=== PATIENT | female | born 1950 | race Caucasian/White ===

== ENCOUNTER 2017-12-19 10:00 | Outpatient (RCR) | payer MEDICARE, SELFPAY ==
--- NOTE | 2017-10-16 08:50 | HP.PTEVAL ---
Patient's Visit Information PEDRO CHURCHILL is a 67 year old F referred to Physical Therapy by Rachel Rodriguez, DO [place] with a diagnosis of Lateral Meniscus Tear. Date of Evaluation: 10/16/17 Physical Therapist: Ayesha Patel - Visit Plan Frequency: 2x /Week Duration: 3 Weeks Plan: Aquatic Therapy- caution of back pain- - Subjective Subjective: Was in PT since July at [facility] for her back- on before she told the PT that the exercises were making her knee feel unstable. Was told to stop doing the exercise- Sat afternoon stepped up on the bleacher and her knee just went out. Tita Reis went to the ER- x-ray was negative but wanted her to see Dr. Rodriguez. Asked for an MRI who denied and encouraged her to see Dr. Noriega for her back. Her knee is stiff and has limited mobility. Pain is located along the posterior aspect of the knee- and on the lateral side of the knee. Has radiating pain but thinks its from her back (tingling). Describes knee pain as dull, achy and stiff. Uses a cane because she isn't comfortable and concerned it might buckle. Fully I before injuries- walking 3/5 miles a day and very active. Worst: 8/10. Agg: being on it, stairs. Eases: Advil Best: 0/10. Sleep: side sleeper and is disturbed due to her back pain. PMHx: HTN, cholesterol Meds: hydrochlorothiadie, prevastatin. - Objective Posture: FH, RS, Increased kyphosis. Gait: mild deviation- decreased stance on the right LE- poor heel/toe pattern. Stairs: asc with recip with UE A, non recip with descent. HR/TR: able but causes pain. SLS: unable but will WS and diamond picker left LE with support. Palpation: tender along lateral joint line and posterior lateral knee. ROM: 10-115 degrees with pain at end range. Strength: ankle: 5/5, Knee: 4/5 with pain, hip: 4/5 Core: fair minus - Goals Goal 1:: Patient will be I with HEP and progression Goal Time Frame: 4-6 Weeks Goal 2:: Patient will demo 0-115 degrees without pain Goal Time Frame: 4-6 Weeks Goal 3:: Patient will asc/desc 8' recip with 1 HR Goal Time Frame: 4-6 Weeks Goal 4:: Patient will SLS for 15 sec without LOB Goal Time Frame: 4-6 Weeks - Rehabilitation Potential Physical Therapy Diagnosis: Patient presents with hypomobility- she had decreased ROm, strength and functional mobility. Rehabilitation Potential: Fair - Anticipated Interventions Patient/Client Instruction: Educate patient on: Benefits of Fitness Program For the Purpose of:: To improve ability to perform ADL's Therapeutic Exercise to Include: Strength training, Endurance training, Balance training, Body mechanics, Postural training, Flexibilty training, Gait and locomotor training, In an aquatic setting, Passive ROM, Active ROM For the Purpose of:: To improve muscle performance and motor function Thank you for the opportunity to evaluate your patient. For Medicare and Medicare HMO plans, please review the plan of care and approve it. It will need to be FAXED BACK to us at [phone] for Medicare purposes. Please let me know if there are questions or concerns regarding this plan of care. Physician Signature: Date:
--- NOTE | 2017-11-07 14:58 | HP.PTREVAL_ITS ---
Rachel Rodriguez DO, It has been my pleasure to treat PEDRO CHURCHILL over the last 7 visits for Lateral Meniscus Tear. Please see the progress note below for an update on the physical therapy plan of care! Subjective: Patient reports no soreness in the knee but does have a lump on the lateral aspect of the knee. Still has restriction of ROM- hard to pick something up off the floor. Has had no buckling or giving out on her. Is not currently using her cane. Does feel that the pool is helping. Wants to be able to do more walking when the weather gets nice. Objective/Function: Posture: fair. Gait: no deviation. Edema: small pocket of fluid on the lateral aspect of the knee distal to the. HR/TR: able with UE A. Balance: 15 sec then UE a reqired. palpation: not tender. rom:0-125 degrees. Strength: Ankle: 5/5, Knee: 5/5, Hip: 4+/5 Core: fair Plan Plan: Cont 2x a week for 2 weeks in the pool Goals Goal 1:: Patient will be I with HEP and progression Goal Time Frame: 4-6 Weeks Goal Progress: Progressing Goal 2:: Patient will demo 0-115 degrees without pain Goal Time Frame: 4-6 Weeks Goal Progress: Goal Met Goal 3:: Patient will asc/desc 8' recip with 1 HR Goal Time Frame: 4-6 Weeks Goal Progress: Progressing Goal 4:: Patient will SLS for 15 sec without LOB Goal Time Frame: 4-6 Weeks Goal Progress: Progressing Anticipated Interventions Patient/Client Instruction: Educate patient on: Benefits of Fitness Program For the Purpose of:: To improve ability to perform ADL's Therapeutic Exercise to Include: Strength training, Endurance training, Balance training, Body mechanics, Postural training, Flexibilty training, Gait and locomotor training, In an aquatic setting, Passive ROM, Active ROM For the Purpose of:: To improve muscle performance and motor function Please do not hesitate to contact me at [phone] by phone or Fax: if you have questions or concerns regarding this new plan of care! Sincerely, Ayesha Patel
--- NOTE | 2017-12-19 10:18 | HP.PTDCSUM_ITS ---
HP - PT D/C Summary It has been my pleasure to treat PEDRO CHURCHILL under orders from Rachel Rodriguez DO, for the diagnosis of Lateral Meniscus Tear for a total of 29 visit(s). Discharge Date: Please see the following information for a summary of their discharge status. - Subjective Subjective: Patient reports that she is a lot better. Anjel has been great at teaching her how to do things with better technique. Muscle soreness in the quads and still has problems doing heavy duty cleaning on her knees. Patient feels that she is 90% better. Wants to get back to walking more when the weather breaks. - Pain LBP Pain Intensity (Out of 10): 0 R knee Pain Intensity (Out of 10): 0 - Overall Improvement % Improvement: 90 - Objective Objective/Function: Posture: good throughout. Gait: no devaition noted. Stairs :asc/desc 8 recip with 1 HR. HR/TR: WNL. Balance: 30 sec without lob SLS. ROM: 0-120 degrees. Strength: 5/5 throughout LE - Goals Goal 1:: Patient will be I with HEP and progression Goal Progress: Goal Met Goal 2:: Patient will demo 0-115 degrees without pain Goal Progress: Goal Met Goal 3:: Patient will asc/desc 8' recip with 1 HR Goal Progress: Goal Met Goal 4:: Patient will SLS for 15 sec without LOB Goal Progress: Goal Met - Plan Plan: Discharge to I HEP - D/C Information If there are questions or concerns regarding this patient's physical therapy, please feel free to call me at [phone]. Thank you for the referral of this patient. Sincerely, Ayesha Patel
== END 2017-12-19 19:00 | disposition home or self-care (01) ==
LOC: PT 10:00
PROVIDERS: Family Provider Internal Medicine; PCP Internal Medicine; Visit Provider Orthopaedic Surgery
DX: S83.281D Other tear of lateral meniscus, current injury, right knee, subsequent encounter (principal)
CPT/HCPCS: 97110; 97113; 97161; 97164; 97530

== ENCOUNTER → 2020-03-01 13:26 | Outpatient (CLI) | payer MEDICARE, SELFPAY ==
[2020-03-01 13:20] VITALS: BMI 34.1
--- NOTE | 2020-03-01 13:26 | RAD_ITS ---
STUDY: X-RAY - RIGHT SHOULDER REASON FOR EXAM: Chronic pain. TECHNIQUE: 3 view(s) of the shoulder. COMPARISON: None. FINDINGS: Normal glenohumeral articulation. There is acromioclavicular arthrosis. Normal acromion. Normal humeral head and visualized proximal humerus. The soft tissue structures are unremarkable. Normal visualized pulmonary apex. RAD/Shoulder min 2 Views IMPRESSION: Acromioclavicular arthrosis. Electronically Signed: Ramsey Valle MD at 15:30 EDT Tel , Service support ,
== END ==
PROVIDERS: PCP Internal Medicine; Referring Provider Orthopaedic Surgery; Visit Provider Orthopaedic Surgery
DX: M25.511 Pain in right shoulder (principal)
CPT/HCPCS: 73030